=== PATIENT | female | born 1965 | race Caucasian/White ===

== ENCOUNTER 2018-06-13 07:51 | Inpatient (IN) | payer OTHER ==
[~2018-06-13] VITALS: Ht 160 cm; Wt 72.6 kg
[~2018-06-13 07:51] MED LIST: ARICEPT10 MG PO; ATIVAN2 M1 PO; DESYREL PO; EFFEXOR XR150 MG PO; GABAPENTIN800 MG PO; INDERAL LA80 MG PO; KEPPRA XR750 MG PO; PLAQUENIL PO; RESTORIL30 M1 PO; RIZATRIPTAN5 MG PO; ROBAXIN-750750 MG PO; SEROQUEL300 MG PO; SYNTHROID50 MCG PO; TYLENOL-CODEINE1 TA1 PO; VIMPAT200 MG PO
[2018-06-21] MEDS ORDERED: TRAZODONE HCL150 MG PO (08:42)
[2018-06-21] MEDS ORDERED: NEURONTIN800 MG PO (12:30)
[2018-06-21] MEDS ORDERED: RESTORIL30 M1 PO (12:30)
[2018-06-21] MEDS ORDERED: AMOX-CLAV 875-1 EACH PO (12:30)
[2018-06-21] MEDS ORDERED: COLACE100 MG PO (12:30)
[2018-06-21] MEDS ORDERED: ACETAMINOPHEN-1 EAC2 PO (12:30)
== END 2018-06-25 16:34 | DRG 460 ==
LOC: SURH 06-20 16:10 → O/R 06-21 05:12 → PED 06-21 05:12 → SURH 06-21 13:00 → PED 06-21 17:44
PROVIDERS: Orthopaedic Surgery Orthopaedic Surgery of the Spine
PROC: 00NY0ZZ Release Lumbar Spinal Cord, Open Approach (ICD-10-PCS; 2018-06-21)
PROC: 0ST40ZZ Resection of Lumbosacral Disc, Open Approach (ICD-10-PCS; 2018-06-21)
PROC: 07DS3ZZ Extraction of Vertebral Bone Marrow, Percutaneous Approach (ICD-10-PCS; 2018-06-21)
PROC: 0SG30AJ Fusion of Lumbosacral Joint with Interbody Fusion Device, Posterior Approach, Anterior Column, Open Approach (ICD-10-PCS; principal; 2018-06-21 13:00)
DX: M47.27 Other spondylosis with radiculopathy, lumbosacral region (principal); M51.37 Other intervertebral disc degeneration, lumbosacral region; I10 Essential (primary) hypertension; E03.9 Hypothyroidism, unspecified